=== PATIENT | male | born 1980 | race Hispanic/Latino ===

== ENCOUNTER 2016-09-21 21:29 | Emergency (ER) | payer OTHER ==
[~2016-09-21] VITALS: Ht 175.3 cm; Wt 98.2 kg
[2016-09-21 23:02] VITALS: BP 156/110
== END 2016-09-21 23:09 | disposition home or self-care (01) ==
LOC: EME 21:29
DX: I10 Essential (primary) hypertension (principal); F17.200 Nicotine dependence, unspecified, uncomplicated
CPT/HCPCS: 93005; 99281; 99283